=== PATIENT | female | born 1980 | race Caucasian/White ===

== ENCOUNTER → 2016-06-09 | Outpatient (CLI) | payer MEDICAID ==
[~2016-06-09] MED LIST: ATIVAN 1MG T1 MG/TAB PO; BACTRIM DS 8001 TAB PO; DESYREL DIVIDO150 M1 PO; DHA PO; EFFE25TA; FLAGYL; KLONOPIN 0.5MG0.5 MG PO; KLONOPIN 1MG1 MG PO; LIALDA 1.2 GM1.2 GM PO; MULTI VITAMINS1 TAB PO; NORCO 325 MG-51 TAB PO; PRENATAL VITAMI1 TA5 PO; PROBIOTIC FORMU1 CAP PO; PROBIOTICS PO; SLOW FE160 MG PO; SYNTHROID0.075 MG/T PO; TYLENOL/CODEINE1 ML PO; VIIBRYD20 MG PO; VIIBRYD40 MG PO; WELLBUTRIN XL150 MG PO; [UNRECOGNIZED DRUG - OTHER] PO
== END ==
LOC: BHSO 09:42
DX: F41.1 Generalized anxiety disorder (principal)

== ENCOUNTER → 2016-07-18 | Outpatient (CLI) | payer MEDICAID | LOC: COL.LAB 17:07 | DX: R10.9 Unspecified abdominal pain (principal); K92.1 Melena; R19.7 Diarrhea, unspecified ==

== ENCOUNTER → 2016-10-16 | Outpatient (CLI) | payer MEDICAID | LOC: BHSO 09:13 | DX: F33.1 Major depressive disorder, recurrent, moderate (principal) ==

== ENCOUNTER 2016-11-20 11:00 | Outpatient (RCR) | payer MEDICAID ==
[2016-10-09 10:13] LABS: HEMATOCRIT 37.3 % (37.0-47.0); HEMOGLOBIN 12.1 g/dl (12.5-16.0); MEAN CELL VOLUME 92 fl (80.0-100.0); MEAN CORPUSCULAR HEMOGLOBIN 30 pg (27.0-31.0); MEAN CORPUSCULAR HGB CONC 32 g/dl (33.0-37.0); MEAN PLATELET VOLUME 8.5 fl (7.4-10.4); PLATELET COUNT 370 K/mm3 (130-400); RED BLOOD COUNT 4.07 M/mm3 (4.10-5.30); REDCELL DISTRIBUTION WIDTH-CV 14.6 % (11.5-14.5); WHITE BLOOD COUNT 13.1 K/mm3 (4.8-10.8)
[2016-10-09 10:14] LABS: ADD PATHOLOGY DIFF REVIEW NO
[2016-10-09 10:39] LABS: ALBUMIN 3.7 gm/dL (3.5-5.0); BILIRUBIN,TOTAL 0.7 mg/dL (0.0-1.0); CALCIUM 8.8 mg/dL (8.4-10.2); CREATININE, serum 0.95 mg/dL (0.52-1.25); POTASSIUM 3.3 mmol/L (3.4-5.0); TOTAL PROTEIN 6.7 gm/dL (6.4-8.2)
[2016-10-09 11:31] LABS: BAND 1 % (0-10); EOSINOPHIL 3 % (0-4); NEUTROPHILS 55 % (42.0-75.2); TOTAL CELLS COUNTED 100
[2016-10-09 11:36] LABS: HYPOCHROMIA 1+; PLATELET ESTIMATE NORMAL (NORMAL)
[2016-10-23 09:37] LABS: MEAN CELL VOLUME 93 fl (80.0-100.0); MEAN CORPUSCULAR HEMOGLOBIN 31 pg (27.0-31.0); MEAN CORPUSCULAR HGB CONC 33 g/dl (33.0-37.0); MEAN PLATELET VOLUME 8.6 fl (7.4-10.4); PLATELET COUNT 299 K/mm3 (130-400); RED BLOOD COUNT 3.94 M/mm3 (4.10-5.30); REDCELL DISTRIBUTION WIDTH-CV 14.2 % (11.5-14.5); WHITE BLOOD COUNT 13.6 K/mm3 (4.8-10.8)
[2016-10-23 09:42] VITALS: BP 129/78; PULSE 77; TEMP 97.7
[2016-10-23 09:43] LABS: HEMATOCRIT 36.5 % (37.0-47.0)
[2016-10-23 09:53] LABS: ADJUSTED CALCIUM 8.7 mg/dL (8.4-10.2); ALBUMIN 3.5 gm/dL (3.5-5.0); BILIRUBIN,TOTAL 0.7 mg/dL (0.0-1.0); CALCIUM 8.3 mg/dL (8.4-10.2); CREATININE, serum 0.88 mg/dL (0.52-1.25); POTASSIUM 3.7 mmol/L (3.4-5.0); TOTAL PROTEIN 6.3 gm/dL (6.4-8.2)
[~2016-11-20] VITALS: Ht 182.9 cm; Wt 145.5 kg
[~2016-11-20 11:00] MED LIST changes: -ATIVAN 1MG T1 MG/TAB PO; -VIIBRYD20 MG PO
[2016-11-20 11:48] LABS: MEAN CELL VOLUME 91 fl (80.0-100.0); MEAN CORPUSCULAR HGB CONC 34 g/dl (33.0-37.0); MEAN PLATELET VOLUME 8.7 fl (7.4-10.4); PLATELET COUNT 295 K/mm3 (130-400); RED BLOOD COUNT 3.82 M/mm3 (4.10-5.30); REDCELL DISTRIBUTION WIDTH-CV 13.4 % (11.5-14.5); WHITE BLOOD COUNT 7.8 K/mm3 (4.8-10.8)
[2016-11-20 11:49] VITALS: BP 119/71; PULSE 88; TEMP 98.2
[2016-11-20 11:50] LABS: HEMATOCRIT 34.9 % (37.0-47.0); HEMOGLOBIN 11.7 g/dl (12.5-16.0); MEAN CORPUSCULAR HEMOGLOBIN 31 pg (27.0-31.0)
[2016-11-20 12:00] LABS: ALBUMIN 3.7 gm/dL (3.5-5.0); BILIRUBIN,TOTAL 0.5 mg/dL (0.0-1.0); CALCIUM 8.8 mg/dL (8.4-10.2); CREATININE, serum 0.9 mg/dL (0.52-1.25); POTASSIUM 3.8 mmol/L (3.4-5.0); TOTAL PROTEIN 6.7 gm/dL (6.4-8.2)
== END 2016-11-20 14:00 | disposition home or self-care (01) ==
LOC: EUO 11:00
PROVIDERS: Internal Medicine Gastroenterology
DX: K50.90 Crohn's disease, unspecified, without complications (principal); Z79.899 Other long term (current) drug therapy
CPT/HCPCS: J1200; J2930; J3380; J7050

== ENCOUNTER → 2016-11-27 | Outpatient (CLI) | payer MEDICAID ==
[~2016-11-27] MED LIST changes: +ATIVAN 1MG T1 MG/TAB PO; +VIIBRYD20 MG PO
== END ==
LOC: BHSO 08:38
DX: F33.41 Major depressive disorder, recurrent, in partial remission (principal)

== ENCOUNTER → 2017-01-12 | Outpatient (CLI) | payer MEDICAID | LOC: BHSO 09:16 | DX: F33.1 Major depressive disorder, recurrent, moderate (principal) ==

== ENCOUNTER 2017-01-15 13:07 | Outpatient (CLI) | payer MEDICAID ==
[~2017-01-15] VITALS: Ht 182.9 cm; Wt 140.2 kg
[~2017-01-15 13:07] MED LIST changes: -ATIVAN 1MG T1 MG/TAB PO; -VIIBRYD20 MG PO
[2017-01-15 13:34] LABS: HEMOGLOBIN 12.2 g/dl (12.5-16.0); MEAN CELL VOLUME 89 fl (80.0-100.0); MEAN CORPUSCULAR HEMOGLOBIN 30 pg (27.0-31.0); MEAN CORPUSCULAR HGB CONC 33 g/dl (33.0-37.0); MEAN PLATELET VOLUME 8.8 fl (7.4-10.4); PLATELET COUNT 324 K/mm3 (130-400); RED BLOOD COUNT 4.13 M/mm3 (4.10-5.30); REDCELL DISTRIBUTION WIDTH-CV 12.6 % (11.5-14.5); WHITE BLOOD COUNT 9.7 K/mm3 (4.8-10.8)
[2017-01-15 13:36] LABS: HEMATOCRIT 36.6 % (37.0-47.0)
[2017-01-15 13:44] LABS: ALBUMIN 3.8 gm/dL (3.5-5.0); BILIRUBIN,TOTAL 0.6 mg/dL (0.0-1.0); CALCIUM 8.8 mg/dL (8.4-10.2); CREATININE, serum 0.94 mg/dL (0.52-1.25); POTASSIUM 3.6 mmol/L (3.4-5.0); TOTAL PROTEIN 6.9 gm/dL (6.4-8.2)
[2017-01-15] MEDS ORDERED: ATIVAN 1MG T1 MG/TAB PO (14:39)
[2017-01-15] MEDS ORDERED: VIIBRYD20 MG PO (14:39)
[2017-01-15 15:37] VITALS: BP 119/87; PULSE 64; TEMP 97.7
== END 2017-01-15 16:37 | disposition home or self-care (01) ==
LOC: EUO 13:07
PROVIDERS: Physician Assistant
DX: K50.90 Crohn's disease, unspecified, without complications (principal); Z79.899 Other long term (current) drug therapy
CPT/HCPCS: J1200; J2920; J3380; J7050

== ENCOUNTER → 2017-01-29 | Outpatient (CLI) | payer MEDICAID ==
[~2017-01-29] MED LIST changes: +ATIVAN 1MG T1 MG/TAB PO; +VIIBRYD20 MG PO
== END ==
LOC: BHSO 07:58
DX: F33.1 Major depressive disorder, recurrent, moderate (principal)

== ENCOUNTER → 2017-02-13 | Outpatient (CLI) | payer MEDICAID | LOC: BHSO 09:05 | DX: F33.1 Major depressive disorder, recurrent, moderate (principal) ==

== ENCOUNTER → 2017-02-17 | Outpatient (CLI) | payer MEDICAID | LOC: COL.RAD 02-12 13:05 | DX: K58.0 Irritable bowel syndrome with diarrhea (principal); R11.2 Nausea with vomiting, unspecified | CPT/HCPCS: A9541 ==

== ENCOUNTER → 2017-03-04 | Outpatient (CLI) | payer MEDICAID | LOC: BHSO 08:00 | DX: F33.41 Major depressive disorder, recurrent, in partial remission (principal) ==

== ENCOUNTER → 2017-05-05 | Outpatient (CLI) | payer MEDICAID | LOC: BHSO 09:32 | DX: F41.1 Generalized anxiety disorder (principal) ==

== ENCOUNTER → 2017-05-27 | Outpatient (CLI) | payer MEDICAID ==
[~2017-05-27] VITALS: Ht 177.8 cm; Wt 137.9 kg
[~2017-05-27] MED LIST changes: +D3-5050000 IU PO; +DESYREL 100MG100 MG PO; -DESYREL DIVIDO150 M1 PO; +HCTZ 25MG TAB25 MG PO; +PREDNISONE 5MG5 MG PO; +PREDNISONE20 MG PO; +PROTONIX 40MG T40 MG PO; +VALIUM 5MG T5 MG/TAB PO; -VIIBRYD20 MG PO; +ZYRTEC 10MG10 MG PO
[2017-05-27 09:29] VITALS: BP 116/70; PULSE 104
== END ==
LOC: LIGHT 09:13
DX: F33.9 Major depressive disorder, recurrent, unspecified (principal); K21.9 Gastro-esophageal reflux disease without esophagitis; E88.81 Metabolic syndrome and other insulin resistance; I10 Essential (primary) hypertension; Z68.41 Body mass index [BMI] 40.0-44.9, adult; Z71.3 Dietary counseling and surveillance

== ENCOUNTER → 2017-06-11 | Outpatient (CLI) | payer MEDICAID | LOC: LIGHT 13:01 | DX: Z01.818 Encounter for other preprocedural examination (principal) ==

== ENCOUNTER → 2017-06-18 | Outpatient (CLI) | payer MEDICAID ==
[~2017-06-18] VITALS: Ht 177.8 cm; Wt 136.1 kg
[2017-06-18 13:24] VITALS: BP 138/80; PULSE 76
== END ==
LOC: LIGHT 11:24
DX: F33.9 Major depressive disorder, recurrent, unspecified (principal); K21.9 Gastro-esophageal reflux disease without esophagitis; R73.01 Impaired fasting glucose; I10 Essential (primary) hypertension; Z68.41 Body mass index [BMI] 40.0-44.9, adult; Z71.3 Dietary counseling and surveillance
CPT/HCPCS: G0463

== ENCOUNTER → 2017-07-06 | Outpatient (CLI) | payer MEDICAID | LOC: LIGHT 06-23 14:50 | DX: Z01.89 Encounter for other specified special examinations (principal) ==

== ENCOUNTER → 2017-07-07 | Outpatient (CLI) | payer MEDICAID | LOC: BHSO 09:00 | DX: F33.1 Major depressive disorder, recurrent, moderate (principal) | CPT/HCPCS: G0463 ==

== ENCOUNTER → 2017-08-03 | Outpatient (CLI) | payer MEDICAID | LOC: BHSO 09:15 | DX: F33.41 Major depressive disorder, recurrent, in partial remission (principal) | CPT/HCPCS: G0463 ==

== ENCOUNTER → 2017-08-27 | Outpatient (CLI) | payer MEDICAID ==
[~2017-08-27] MED LIST changes: +PRILOSEC 20MG20 MG PO
== END ==
LOC: LIGHT 10:42
DX: Z01.89 Encounter for other specified special examinations (principal)

== ENCOUNTER → 2017-09-11 | Outpatient (CLI) | payer MEDICAID | LOC: BHSO 10:38 | DX: F33.41 Major depressive disorder, recurrent, in partial remission (principal) | CPT/HCPCS: G0463 ==

== ENCOUNTER 2017-09-28 10:54 | Outpatient (CLI) | payer MEDICAID ==
[~2017-09-28] VITALS: Ht 177.8 cm; Wt 134.9 kg
[2017-09-28 11:14] LABS: HEMATOCRIT 39.4 % (37.0-47.0); HEMOGLOBIN 13.1 g/dl (12.5-16.0); MEAN CELL VOLUME 93 fl (80.0-100.0); MEAN CORPUSCULAR HEMOGLOBIN 31 pg (27.0-31.0); MEAN CORPUSCULAR HGB CONC 33 g/dl (33.0-37.0); MEAN PLATELET VOLUME 8.7 fl (7.4-10.4); PLATELET COUNT 302 K/mm3 (130-400); RED BLOOD COUNT 4.22 M/mm3 (4.10-5.30); REDCELL DISTRIBUTION WIDTH-CV 13.4 % (11.5-14.5)
[2017-09-28 11:26] LABS: ALBUMIN 3.8 gm/dL (3.5-5.0); BILIRUBIN,TOTAL 0.3 mg/dL (0.0-1.0); CALCIUM 8.9 mg/dL (8.4-10.2); CREATININE, serum 0.83 mg/dL (0.52-1.25); POTASSIUM 3.5 mmol/L (3.4-5.0); TOTAL PROTEIN 7.2 gm/dL (6.4-8.2)
[2017-09-28 11:36] VITALS: BP 116/69; PULSE 84; TEMP 97.7
== END 2017-09-28 14:52 | disposition home or self-care (01) ==
LOC: EUO 10:54
PROVIDERS: Physician Assistant
DX: K50.90 Crohn's disease, unspecified, without complications (principal); Z79.899 Other long term (current) drug therapy
CPT/HCPCS: J1200; J2930; J7050; Q5103

== ENCOUNTER → 2017-12-21 | Outpatient (CLI) | payer MEDICAID | LOC: BHSO 11:20 | DX: F33.42 Major depressive disorder, recurrent, in full remission (principal) | CPT/HCPCS: G0463 ==

== ENCOUNTER 2018-03-14 18:59 | Emergency (ER) | payer MEDICAID ==
[~2018-03-14] VITALS: Ht 180.3 cm; Wt 146.8 kg
[2018-03-14 19:04] VITALS: TEMP 98.1
[2018-03-14 19:53] LABS: BASO # 0.1 (0.0-0.2); BASO % 0.6 % (0.0-2.0); EOS # 0.3 (0.0-0.7); EOS % 3.1 % (0-4.0); GRAN # 5.6 (1.4-6.5); HEMATOCRIT 39.2 % (37.0-47.0); HEMOGLOBIN 13.3 g/dl (12.5-16.0); LYMPH # 2.9 (1.2-3.4); LYMPH % 29.9 % (20.0-51.0); MEAN CELL VOLUME 89 fl (80.0-100.0); MEAN CORPUSCULAR HEMOGLOBIN 30 pg (27.0-31.0); MEAN CORPUSCULAR HGB CONC 34 g/dl (33.0-37.0); MEAN PLATELET VOLUME 8.7 fl (7.4-10.4); MONO # 0.8 (0.1-0.6); MONO % 8.2 % (1.7-9.3); PLATELET COUNT 334 K/mm3 (130-400); RED BLOOD COUNT 4.42 M/mm3 (4.10-5.30); REDCELL DISTRIBUTION WIDTH-CV 12.7 % (11.5-14.5)
[2018-03-14 20:07] LABS: ALBUMIN 3.9 gm/dL (3.5-5.0); BILIRUBIN,TOTAL 0.3 mg/dL (0.0-1.0); C-REACTIVE PROTEIN 1.4 mg/dL (0.0-0.9); CALCIUM 9.3 mg/dL (8.4-10.2); CREATININE, serum 0.77 mg/dL (0.52-1.25); POTASSIUM 3.7 mmol/L (3.4-5.0); TOTAL PROTEIN 7.2 gm/dL (6.4-8.2)
[2018-03-14] MEDS ORDERED: ZOVIRAX400 MG PO (20:34)
[2018-03-14] MEDS ORDERED: CORTEF 10MG TAB10 MG PO (20:34)
[2018-03-14] MEDS ORDERED: CORTEF 20MG TAB20 MG PO (20:34)
[2018-03-14 22:15] VITALS: BP 126/77; PULSE 97
== END 2018-03-14 22:15 | disposition home or self-care (01) ==
LOC: COL.ER 18:59
PROVIDERS: Emergency Medicine
DX: R53.81 Other malaise (principal); R53.82 Chronic fatigue, unspecified; E27.40 Unspecified adrenocortical insufficiency; K58.9 Irritable bowel syndrome, unspecified; E03.9 Hypothyroidism, unspecified; F41.9 Anxiety disorder, unspecified; F32.9 Major depressive disorder, single episode, unspecified
CPT/HCPCS: J7030

== ENCOUNTER → 2018-03-22 | Outpatient (CLI) | payer MEDICAID ==
[~2018-03-22] MED LIST changes: +CORTEF 10MG TAB10 MG PO; +CORTEF 20MG TAB20 MG PO; +ZOVIRAX400 MG PO
== END ==
LOC: BHSO 09:56
DX: F33.42 Major depressive disorder, recurrent, in full remission (principal)
CPT/HCPCS: G0463

== ENCOUNTER → 2018-04-30 | Outpatient (CLI) | payer MEDICAID | LOC: COL.RAD 12:35 | DX: K76.0 Fatty (change of) liver, not elsewhere classified (principal); R06.09 Other forms of dyspnea; R79.1 Abnormal coagulation profile | CPT/HCPCS: Q9967 ==

== ENCOUNTER → 2018-06-10 | Outpatient (CLI) | payer MEDICAID | LOC: BHSO 10:17 | DX: F33.41 Major depressive disorder, recurrent, in partial remission (principal) | CPT/HCPCS: G0463 ==

== ENCOUNTER → 2018-09-09 | Outpatient (CLI) | payer MEDICAID | LOC: BHSO 09:57 | DX: F33.41 Major depressive disorder, recurrent, in partial remission (principal) | CPT/HCPCS: G0463 ==

== ENCOUNTER 2018-09-19 21:15 | Emergency (ER) | payer SELFPAY ==
[~2018-09-19] VITALS: Ht 180.3 cm; Wt 146.4 kg
[2018-09-19 21:29] VITALS: TEMP 97
[2018-09-19 23:38] LABS: HEMATOCRIT 39.3 % (37.0-47.0); HEMOGLOBIN 12.8 g/dl (12.5-16.0); MEAN CELL VOLUME 87 fl (80.0-100.0); MEAN CORPUSCULAR HEMOGLOBIN 28 pg (27.0-31.0); MEAN CORPUSCULAR HGB CONC 33 g/dl (33.0-37.0); MEAN PLATELET VOLUME 8.4 fl (7.4-10.4); PLATELET COUNT 380 K/mm3 (130-400); REDCELL DISTRIBUTION WIDTH-CV 15.2 % (11.5-14.5)
[2018-09-19] MEDS ORDERED: PREDNISONE 5MG5 MG PO (23:42)
[2018-09-19] MEDS ORDERED: WELLBUTRIN XL150 MG PO (23:43)
[2018-09-19] MEDS ORDERED: RISPERDAL 1M1 MG/TAB PO (23:43)
[2018-09-19] MEDS ORDERED: KAPSPARGO SPRIN25 MG PO (23:44)
[2018-09-19 23:45] LABS: BILIRUBIN,TOTAL 0.2 mg/dL (0.0-1.0); CALCIUM 9.5 mg/dL (8.4-10.2); CREATININE, serum 0.95 (0.52-1.25); POTASSIUM 3.4 mmol/L (3.4-5.0); TOTAL PROTEIN 7.4 gm/dL (6.4-8.2)
[2018-09-20] MEDS ORDERED: ZITHROMAX Z PA250 MG PO (01:02)
[2018-09-20 01:30] VITALS: BP 95/59; PULSE 84
[2018-09-20 01:57] LABS: BAND 9 % (0-10); EOSINOPHIL 2 % (0-4); LYMPHOCYTE 32 % (20.0-51.0); NEUTROPHILS 54 % (42.0-75.2)
== END 2018-09-20 01:32 | disposition home or self-care (01) ==
LOC: COL.ER 21:15
PROVIDERS: Physician Assistant
DX: J20.9 Acute bronchitis, unspecified (principal)

== ENCOUNTER 2018-09-29 13:15 | Day surgery (SDC) | payer BC ==
[~2018-09-29] VITALS: Ht 180.3 cm; Wt 145.5 kg
[~2018-09-29 13:15] MED LIST changes: +KAPSPARGO SPRIN25 MG PO; +RISPERDAL 1M1 MG/TAB PO; +ZITHROMAX Z PA250 MG PO
[2018-09-29 13:40] VITALS: BP 132/91; PULSE 118; TEMP 96.3
[2018-09-29] MEDS ORDERED: LIALDA 1.2 GM1.2 GM PO (13:51)
[2018-09-29] MEDS ORDERED: DULERA1 ARO IH (13:52)
[2018-09-29] MEDS ORDERED: WOMEN'S DAILY1 TAB PO (13:53)
[2018-09-29] MEDS ORDERED: AMOXICILLIN 8751 TAB PO (13:53)
[2018-09-29] MEDS ORDERED: SINGULAIR 110 MG/TAB PO (13:53)
[2018-09-29 15:00] VITALS: BP 128/89; PULSE 109; TEMP 97.4
--- NOTE | 2018-09-29 15:00 | NUR ---
PT RETURNS FROM PROCEDURE TO BAY 3 BY CART. AMBULATES FROM CART TO CHAIR WITH STANDBY ASSIST. MONITORS APPLIED. VSS AND AT BASELINE. CALL LIGHT IN REACH. PT DENIES PAIN OR NAUSEA, REQUEST JUICE, WATER, AND MUFFIN. DR. MARCANO IN ROOM.
[2018-09-29 15:15] VITALS: BP 129/91; PULSE 113
--- NOTE | 2018-09-29 15:15 | NUR ---
PT TOLERATE FOOD AND DRINK. CONTINUES TO DENY PAIN OR NAUSEA. VSS AND AT BASELINE ON ROOM AIR. CALL LIGHT IN REACH.
[2018-09-29 15:31] VITALS: BP 143/89; PULSE 104
--- NOTE | 2018-09-29 15:31 | NUR ---
PT REMAINS ALERT. DENIES PAIN OR NAUSEA. IV DC'D WITH CATH TIP INTACT. DC INSTRUCTIONS GIVEN. PT VOICES UNDERSTANDING.
== END 2018-09-29 15:35 | disposition home or self-care (01) ==
LOC: SDCO 13:15
DX: K21.9 Gastro-esophageal reflux disease without esophagitis (principal); K29.30 Chronic superficial gastritis without bleeding; K51.011 Ulcerative (chronic) pancolitis with rectal bleeding; K92.1 Melena; Z90.49 Acquired absence of other specified parts of digestive tract; E66.01 Morbid (severe) obesity due to excess calories; F32.9 Major depressive disorder, single episode, unspecified; F41.9 Anxiety disorder, unspecified; Z79.51 Long term (current) use of inhaled steroids; M19.90 Unspecified osteoarthritis, unspecified site; K21.0 Gastro-esophageal reflux disease with esophagitis; R53.82 Chronic fatigue, unspecified; R19.7 Diarrhea, unspecified
CPT/HCPCS: J2250; J2704; J3010

== ENCOUNTER → 2018-10-08 | Outpatient (CLI) | payer BC ==
[~2018-10-08] MED LIST changes: +AMOXICILLIN 8751 TAB PO; +DULERA1 ARO IH; +SINGULAIR 110 MG/TAB PO; +WOMEN'S DAILY1 TAB PO
== END ==
LOC: BHSO 12:54
DX: F33.1 Major depressive disorder, recurrent, moderate (principal)

== ENCOUNTER → 2018-10-25 | Outpatient (CLI) | payer BC | LOC: BHSO 09:58 | DX: F40.10 Social phobia, unspecified (principal) ==

== ENCOUNTER → 2018-11-08 | Outpatient (CLI) | payer BC | LOC: BHSO 09:58 | DX: F42.9 Obsessive-compulsive disorder, unspecified (principal) ==

== ENCOUNTER → 2018-11-09 | Outpatient (CLI) | payer BC | LOC: BHSO 09:33 | DX: F31.81 Bipolar II disorder (principal) | CPT/HCPCS: G0463 ==

== ENCOUNTER → 2018-11-30 | Outpatient (CLI) | payer BC ==
[~2018-11-30] MED LIST changes: +FLAGYL 250250 MG/TAB PO
== END ==
LOC: BHSO 09:58
DX: F42.9 Obsessive-compulsive disorder, unspecified (principal)

== ENCOUNTER → 2018-12-16 | Outpatient (CLI) | payer BC ==
[~2018-12-16] MED LIST changes: +ADDERALL XR 10M10 MG PO; +CORTEF5 MG PO
== END ==
LOC: BHSO 10:02
DX: F42.9 Obsessive-compulsive disorder, unspecified (principal)

== ENCOUNTER 2018-12-20 14:00 | Outpatient (RCR) | payer BC ==
[2018-11-08 14:35] LABS: HEMATOCRIT 38.8 % (37.0-47.0); HEMOGLOBIN 12.9 g/dl (12.5-16.0); MEAN CELL VOLUME 89 fl (80.0-100.0); MEAN CORPUSCULAR HEMOGLOBIN 30 pg (27.0-31.0); MEAN CORPUSCULAR HGB CONC 33 g/dl (33.0-37.0); MEAN PLATELET VOLUME 8.5 fl (7.4-10.4); PLATELET COUNT 331 K/mm3 (130-400); RED BLOOD COUNT 4.37 M/mm3 (4.10-5.30); REDCELL DISTRIBUTION WIDTH-CV 14.8 % (11.5-14.5)
[2018-11-08 14:47] LABS: ALBUMIN 4.2 gm/dL (3.5-5.0); BILIRUBIN,TOTAL 0.4 mg/dL (0.0-1.0); CALCIUM 9.6 mg/dL (8.4-10.2); CREATININE, serum 0.94 (0.52-1.25); TOTAL PROTEIN 7.4 gm/dL (6.4-8.2)
[2018-11-08 15:42] VITALS: BP 124/69; PULSE 86; TEMP 98.2
[2018-11-08 16:15] VITALS: BP 116/68; PULSE 82; TEMP 98.4
[2018-11-08 16:45] VITALS: BP 106/63; PULSE 89; TEMP 98
[2018-11-08 17:15] VITALS: BP 109/72; PULSE 86
--- NOTE | 2018-11-08 17:20 | NUR ---
Report to Donya Etienne RN who assumed care at this time.
[2018-11-08 17:41] VITALS: BP 107/67; PULSE 83; TEMP 97
[2018-11-22 14:09] LABS: HEMATOCRIT 41.4 % (37.0-47.0); HEMOGLOBIN 13.8 g/dl (12.5-16.0); MEAN CELL VOLUME 90 fl (80.0-100.0); MEAN CORPUSCULAR HEMOGLOBIN 30 pg (27.0-31.0); MEAN CORPUSCULAR HGB CONC 33 g/dl (33.0-37.0); MEAN PLATELET VOLUME 8.6 fl (7.4-10.4); PLATELET COUNT 326 K/mm3 (130-400); REDCELL DISTRIBUTION WIDTH-CV 15.4 % (11.5-14.5)
[2018-11-22 14:17] LABS: ALBUMIN 4.4 gm/dL (3.5-5.0); BILIRUBIN,TOTAL 0.3 mg/dL (0.0-1.0); CALCIUM 9.5 mg/dL (8.4-10.2); CREATININE, serum 0.82 (0.52-1.25); POTASSIUM 4.7 mmol/L (3.4-5.0); TOTAL PROTEIN 8.2 gm/dL (6.4-8.2)
[2018-11-22 15:40] VITALS: BP 119/74; PULSE 101; TEMP 98.6
[2018-11-22 16:10] VITALS: BP 131/77; PULSE 101; TEMP 98.1
--- NOTE | 2018-11-22 16:15 | NUR ---
Report to Arlette Russell Rn who assumed care at this time.
[2018-11-22 16:40] VITALS: BP 126/72; PULSE 110; TEMP 98.7
[2018-11-22 17:10] VITALS: BP 110/76; PULSE 96; TEMP 98.1
[2018-11-22 17:40] VITALS: BP 108/80; PULSE 99; TEMP 98
[~2018-12-20] VITALS: Ht 180.3 cm; Wt 156.3 kg
[~2018-12-20 14:00] MED LIST changes: -ADDERALL XR 10M10 MG PO; -CORTEF5 MG PO
[2018-12-20 14:13] LABS: HEMATOCRIT 39.4 % (37.0-47.0); HEMOGLOBIN 13.3 g/dl (12.5-16.0); MEAN CELL VOLUME 89 fl (80.0-100.0); MEAN CORPUSCULAR HEMOGLOBIN 30 pg (27.0-31.0); MEAN CORPUSCULAR HGB CONC 34 g/dl (33.0-37.0); MEAN PLATELET VOLUME 8.7 fl (7.4-10.4); PLATELET COUNT 288 K/mm3 (130-400); RED BLOOD COUNT 4.43 M/mm3 (4.10-5.30); REDCELL DISTRIBUTION WIDTH-CV 13.9 % (11.5-14.5)
[2018-12-20] MEDS ORDERED: ADDERALL XR 10M10 MG PO (14:13)
[2018-12-20] MEDS ORDERED: CORTEF 10MG TAB10 MG PO (14:14)
[2018-12-20] MEDS ORDERED: CORTEF5 MG PO (14:15)
[2018-12-20 14:23] LABS: ALBUMIN 4.3 gm/dL (3.5-5.0); BILIRUBIN,TOTAL 0.5 mg/dL (0.0-1.0); CALCIUM 9.5 mg/dL (8.4-10.2); CREATININE, serum 0.83 (0.52-1.25); POTASSIUM 4.1 mmol/L (3.4-5.0); TOTAL PROTEIN 7.6 gm/dL (6.4-8.2)
[2018-12-20 15:00] VITALS: BP 115/78; PULSE 92; TEMP 97.7
[2018-12-20 15:15] VITALS: BP 112/70; PULSE 97; TEMP 97.7
[2018-12-20 15:45] VITALS: BP 106/65; PULSE 94; TEMP 97.7
[2018-12-20 16:15] VITALS: BP 119/75; PULSE 92; TEMP 97.7
[2018-12-20 16:45] VITALS: BP 113/78; PULSE 94; TEMP 97.7
== END 2018-12-20 17:08 | disposition home or self-care (01) ==
LOC: EUO 14:00
PROVIDERS: Internal Medicine Gastroenterology
DX: K50.90 Crohn's disease, unspecified, without complications (principal); Z79.899 Other long term (current) drug therapy
CPT/HCPCS: J1200; J2930; J7050; Q5103

== ENCOUNTER → 2018-12-29 | Outpatient (CLI) | payer BC ==
[~2018-12-29] MED LIST changes: +ADDERALL XR 10M10 MG PO; +CORTEF5 MG PO
== END ==
LOC: BHSO 08:54
DX: F42.9 Obsessive-compulsive disorder, unspecified (principal)

== ENCOUNTER → 2019-01-12 | Outpatient (CLI) | payer BC | LOC: BHSO 09:52 | DX: F41.1 Generalized anxiety disorder (principal) ==

== ENCOUNTER → 2019-01-26 | Outpatient (CLI) | payer BC | LOC: BHSO 10:59 | DX: F42.9 Obsessive-compulsive disorder, unspecified (principal) ==

== ENCOUNTER → 2019-02-08 | Outpatient (CLI) | payer BC | LOC: BHSO 09:58 | DX: F31.81 Bipolar II disorder (principal) | CPT/HCPCS: G0463 ==

== ENCOUNTER → 2019-02-09 | Outpatient (CLI) | payer BC | LOC: BHSO 10:33 | DX: F42.9 Obsessive-compulsive disorder, unspecified (principal) ==

== ENCOUNTER → 2019-02-23 | Outpatient (CLI) | payer BC | LOC: BHSO 10:07 | DX: F42.9 Obsessive-compulsive disorder, unspecified (principal) ==

== ENCOUNTER → 2019-03-10 | Outpatient (CLI) | payer BC | LOC: BHSO 09:54 | DX: F42.9 Obsessive-compulsive disorder, unspecified (principal) ==

== ENCOUNTER 2019-03-23 13:50 | Outpatient (CLI) | payer BC ==
[~2019-03-23] VITALS: Ht 180.3 cm; Wt 153.0 kg
[2019-03-23] VITALS (7 sets, daily range): BP systolic 103–116; BP diastolic 72–79; PULSE 70–77; TEMP 97.6–98
[2019-03-23 14:36] LABS: HEMATOCRIT 40.8 % (37.0-47.0); HEMOGLOBIN 13.7 g/dl (12.5-16.0); MEAN CELL VOLUME 91 fl (80.0-100.0); MEAN CORPUSCULAR HEMOGLOBIN 30 pg (27.0-31.0); MEAN CORPUSCULAR HGB CONC 34 g/dl (33.0-37.0); MEAN PLATELET VOLUME 8.8 fl (7.4-10.4); PLATELET COUNT 267 K/mm3 (130-400); RED BLOOD COUNT 4.51 M/mm3 (4.10-5.30); REDCELL DISTRIBUTION WIDTH-CV 13.4 % (11.5-14.5)
[2019-03-23 14:47] LABS: ALBUMIN 4.5 gm/dL (3.5-5.0); BILIRUBIN,TOTAL 0.4 mg/dL (0.0-1.0); CALCIUM 9.5 mg/dL (8.4-10.2); CREATININE, serum 0.76 (0.52-1.25); POTASSIUM 3.7 mmol/L (3.4-5.0); TOTAL PROTEIN 7.8 gm/dL (6.4-8.2)
== END 2019-03-23 18:14 | disposition home or self-care (01) ==
LOC: EUO 13:50
PROVIDERS: Internal Medicine Gastroenterology
DX: K51.90 Ulcerative colitis, unspecified, without complications (principal); Z79.899 Other long term (current) drug therapy
CPT/HCPCS: J1200; J2930; J7040; Q5103

== ENCOUNTER → 2019-03-24 | Outpatient (CLI) | payer BC | LOC: BHSO 10:59 | DX: F42.9 Obsessive-compulsive disorder, unspecified (principal) ==

== ENCOUNTER → 2019-04-14 | Outpatient (CLI) | payer BC | LOC: BHSO 08:55 | DX: F42.9 Obsessive-compulsive disorder, unspecified (principal) ==

== ENCOUNTER → 2019-05-05 | Outpatient (CLI) | payer BC | LOC: BHSO 09:53 | DX: F42.8 Other obsessive-compulsive disorder (principal) ==

== ENCOUNTER 2019-05-16 13:01 | Outpatient (CLI) | payer BC ==
[~2019-05-16] VITALS: Ht 180.3 cm; Wt 153.3 kg
[2019-05-16] VITALS (8 sets, daily range): BP systolic 92–124; BP diastolic 45–81; PULSE 61–75; TEMP 97.8–97.9
[2019-05-16 13:34] LABS: HEMATOCRIT 42.2 % (37.0-47.0); HEMOGLOBIN 14.2 g/dl (12.5-16.0); MEAN CELL VOLUME 91 fl (80.0-100.0); MEAN CORPUSCULAR HEMOGLOBIN 31 pg (27.0-31.0); MEAN CORPUSCULAR HGB CONC 34 g/dl (33.0-37.0); MEAN PLATELET VOLUME 9.2 fl (7.4-10.4); PLATELET COUNT 354 K/mm3 (130-400); RED BLOOD COUNT 4.62 M/mm3 (4.10-5.30)
[2019-05-16 13:39] LABS: ALBUMIN 4.3 gm/dL (3.5-5.0); BILIRUBIN,TOTAL 0.5 mg/dL (0.0-1.0); CALCIUM 9.3 mg/dL (8.4-10.2); CREATININE, serum 0.81 (0.52-1.25); POTASSIUM 3.8 mmol/L (3.4-5.0); TOTAL PROTEIN 7.6 gm/dL (6.4-8.2)
== END 2019-05-16 18:00 | disposition home or self-care (01) ==
LOC: EUO 13:01
PROVIDERS: Internal Medicine Gastroenterology
DX: K51.90 Ulcerative colitis, unspecified, without complications (principal); Z79.899 Other long term (current) drug therapy
CPT/HCPCS: J1200; J2930; J7050; Q5103

== ENCOUNTER → 2019-05-30 | Outpatient (CLI) | payer BC | LOC: BHSO 12:54 | DX: F42.8 Other obsessive-compulsive disorder (principal) ==

== ENCOUNTER → 2019-06-17 | Outpatient (CLI) | payer BC | LOC: BHSO 08:59 | DX: F42.8 Other obsessive-compulsive disorder (principal) ==

== ENCOUNTER → 2019-06-24 | Outpatient (CLI) | payer BC | LOC: COL.RAD 08:47 | DX: R74.8 Abnormal levels of other serum enzymes (principal); K76.0 Fatty (change of) liver, not elsewhere classified ==

== ENCOUNTER → 2019-06-30 | Outpatient (CLI) | payer BC | LOC: BHSO 09:02 | DX: F42.8 Other obsessive-compulsive disorder (principal) ==

== ENCOUNTER 2019-07-11 12:53 | Outpatient (CLI) | payer BC ==
[~2019-07-11] VITALS: Ht 180.3 cm; Wt 150.0 kg
[2019-07-11 13:09] LABS: HEMATOCRIT 41.2 % (37.0-47.0); HEMOGLOBIN 14.1 g/dl (12.5-16.0); MEAN CELL VOLUME 91 fl (80.0-100.0); MEAN CORPUSCULAR HEMOGLOBIN 31 pg (27.0-31.0); MEAN CORPUSCULAR HGB CONC 34 g/dl (33.0-37.0); PLATELET COUNT 299 K/mm3 (130-400); RED BLOOD COUNT 4.54 M/mm3 (4.10-5.30); REDCELL DISTRIBUTION WIDTH-CV 13.7 % (11.5-14.5)
[2019-07-11 13:23] LABS: ALBUMIN 4.4 gm/dL (3.5-5.0); BILIRUBIN,TOTAL 0.8 mg/dL (0.0-1.0); CALCIUM 9.3 mg/dL (8.4-10.2); CREATININE, serum 0.81 (0.52-1.25); POTASSIUM 3.9 mmol/L (3.4-5.0); TOTAL PROTEIN 7.7 gm/dL (6.4-8.2)
[2019-07-11 14:29] VITALS: BP 107/56; PULSE 82; TEMP 98.2
[2019-07-11 14:59] VITALS: BP 109/62; PULSE 78; TEMP 98.2
[2019-07-11 15:27] VITALS: BP 113/71; PULSE 85; TEMP 98.2
[2019-07-11 15:58] VITALS: BP 121/58; PULSE 85; TEMP 98.2
[2019-07-11 16:28] VITALS: BP 120/56; PULSE 85; TEMP 98.2
== END 2019-07-11 16:30 | disposition home or self-care (01) ==
LOC: EUO 12:53
PROVIDERS: Internal Medicine Gastroenterology
DX: K51.90 Ulcerative colitis, unspecified, without complications (principal); Z79.899 Other long term (current) drug therapy
CPT/HCPCS: J1200; J1745; J2930; J7040; Q5103

== ENCOUNTER → 2019-07-12 | Outpatient (CLI) | payer BC | LOC: BHSO 09:55 | DX: F41.1 Generalized anxiety disorder (principal) | CPT/HCPCS: G0463 ==

== ENCOUNTER → 2019-07-22 | Outpatient (CLI) | payer BC | LOC: BHSO 08:58 | DX: F41.1 Generalized anxiety disorder (principal) ==

== ENCOUNTER → 2019-08-12 | Outpatient (CLI) | payer BC | LOC: BHSO 13:56 | DX: F42.8 Other obsessive-compulsive disorder (principal) ==

== ENCOUNTER 2019-09-12 13:44 | Outpatient (CLI) | payer BC ==
[~2019-09-12] VITALS: Ht 180.3 cm; Wt 153.6 kg
[2019-09-12] VITALS (7 sets, daily range): BP systolic 105–139; BP diastolic 70–88; PULSE 91–101; TEMP 98–98.4
[2019-09-12 14:11] LABS: HEMATOCRIT 38.7 % (37.0-47.0); HEMOGLOBIN 13.2 g/dl (12.5-16.0); MEAN CELL VOLUME 91 fl (80.0-100.0); MEAN CORPUSCULAR HEMOGLOBIN 31 pg (27.0-31.0); MEAN CORPUSCULAR HGB CONC 34 g/dl (33.0-37.0); MEAN PLATELET VOLUME 8.7 fl (7.4-10.4); PLATELET COUNT 284 K/mm3 (130-400); RED BLOOD COUNT 4.25 M/mm3 (4.10-5.30); REDCELL DISTRIBUTION WIDTH-CV 13.2 % (11.5-14.5)
[2019-09-12] MEDS ORDERED: PRISTIQ25 MG PO (14:13)
[2019-09-12 14:21] LABS: ALBUMIN 4.3 gm/dL (3.5-5.0); BILIRUBIN,TOTAL 0.7 mg/dL (0.0-1.0); CALCIUM 9.5 mg/dL (8.4-10.2); CREATININE, serum 1.05 (0.52-1.25); POTASSIUM 3.6 mmol/L (3.4-5.0); TOTAL PROTEIN 7.8 gm/dL (6.4-8.2)
--- NOTE | 2019-09-12 16:59 | NUR ---
REPORT GIVEN TO ISAURA SHELBY AND ISAURA STEELE.
== END 2019-09-12 18:07 | disposition home or self-care (01) ==
LOC: EUO 13:44
PROVIDERS: Internal Medicine Gastroenterology
DX: K51.90 Ulcerative colitis, unspecified, without complications (principal); Z79.899 Other long term (current) drug therapy
CPT/HCPCS: J1200; J1745; J2930; J7040; Q5103

== ENCOUNTER 2019-11-07 13:22 | Outpatient (CLI) | payer BC ==
[~2019-11-07] VITALS: Ht 180.3 cm; Wt 155.6 kg
[~2019-11-07 13:22] MED LIST changes: +PRISTIQ25 MG PO
[2019-11-07 13:50] LABS: HEMATOCRIT 41.6 % (37.0-47.0); MEAN CELL VOLUME 91 fl (80.0-100.0); MEAN CORPUSCULAR HEMOGLOBIN 31 pg (27.0-31.0); MEAN CORPUSCULAR HGB CONC 34 g/dl (33.0-37.0); MEAN PLATELET VOLUME 8.7 fl (7.4-10.4); PLATELET COUNT 333 K/mm3 (130-400); RED BLOOD COUNT 4.57 M/mm3 (4.10-5.30); REDCELL DISTRIBUTION WIDTH-CV 13.2 % (11.5-14.5)
[2019-11-07 14:02] LABS: ALBUMIN 4.5 gm/dL (3.5-5.0); BILIRUBIN,TOTAL 0.7 mg/dL (0.0-1.0); CALCIUM 9.6 mg/dL (8.4-10.2); CREATININE, serum 0.83 (0.52-1.25); POTASSIUM 4.1 mmol/L (3.4-5.0); TOTAL PROTEIN 8.1 gm/dL (6.4-8.2)
[2019-11-07 15:48] VITALS: BP 99/65; PULSE 77; TEMP 98
[2019-11-07 16:18] VITALS: BP 115/70; PULSE 76; TEMP 98
[2019-11-07 16:48] VITALS: BP 115/72; PULSE 76; TEMP 98
[2019-11-07 17:40] VITALS: BP 115/74; PULSE 76; TEMP 98
== END 2019-11-07 17:41 | disposition home or self-care (01) ==
LOC: EUO 13:22
PROVIDERS: Internal Medicine Gastroenterology
DX: K51.90 Ulcerative colitis, unspecified, without complications (principal); Z79.899 Other long term (current) drug therapy
CPT/HCPCS: J1200; J2920; J7050; Q5103

== ENCOUNTER → 2019-11-17 | Outpatient (CLI) | payer BC | LOC: BHSO 13:55 | DX: F42.8 Other obsessive-compulsive disorder (principal) ==

== ENCOUNTER → 2019-11-28 | Outpatient (CLI) | payer BC | LOC: ZCOL.LAB 21:36 | DX: R05 Cough (principal); R06.02 Shortness of breath; Z20.828 Contact with and (suspected) exposure to other viral communicable diseases ==

== ENCOUNTER → 2019-12-06 | Outpatient (CLI) | payer BC | LOC: BHSO 13:01 | DX: F42.8 Other obsessive-compulsive disorder (principal) ==

== ENCOUNTER → 2019-12-19 | Outpatient (CLI) | payer BC | LOC: BHSO 10:36 | DX: F31.81 Bipolar II disorder (principal) | CPT/HCPCS: G0463 ==

== ENCOUNTER → 2019-12-20 | Outpatient (CLI) | payer BC | LOC: BHSO 13:02 | DX: F42.8 Other obsessive-compulsive disorder (principal) ==

== ENCOUNTER 2020-01-06 08:13 | Outpatient (CLI) | payer BC ==
[2020-01-06] VITALS (7 sets, daily range): BP systolic 107–133; BP diastolic 62–75; PULSE 74–92; TEMP 97.8
[~2020-01-06] VITALS: Ht 180.3 cm; Wt 150.4 kg
[2020-01-06 08:51] LABS: HEMATOCRIT 39.2 % (37.0-47.0); HEMOGLOBIN 13.2 g/dl (12.5-16.0); MEAN CELL VOLUME 91 fl (80.0-100.0); MEAN CORPUSCULAR HEMOGLOBIN 31 pg (27.0-31.0); MEAN CORPUSCULAR HGB CONC 34 g/dl (33.0-37.0); MEAN PLATELET VOLUME 8.7 fl (7.4-10.4); PLATELET COUNT 355 K/mm3 (130-400); RED BLOOD COUNT 4.32 M/mm3 (4.10-5.30); REDCELL DISTRIBUTION WIDTH-CV 13.4 % (11.5-14.5)
[2020-01-06 09:02] LABS: ALBUMIN 4.3 gm/dL (3.5-5.0); BILIRUBIN,TOTAL 0.5 mg/dL (0.0-1.0); CALCIUM 8.9 mg/dL (8.4-10.2); CREATININE, serum 0.82 (0.52-1.25); POTASSIUM 3.6 mmol/L (3.4-5.0); TOTAL PROTEIN 7.7 gm/dL (6.4-8.2)
== END 2020-01-06 14:21 | disposition home or self-care (01) ==
LOC: EUO 08:13
PROVIDERS: Internal Medicine Gastroenterology
DX: K51.90 Ulcerative colitis, unspecified, without complications (principal); Z79.899 Other long term (current) drug therapy
CPT/HCPCS: J1200; J2930; J7040; Q5103

== ENCOUNTER → 2020-01-20 | Outpatient (CLI) | payer BC | LOC: BHSO 09:00 | DX: F42.8 Other obsessive-compulsive disorder (principal) ==

== ENCOUNTER → 2020-01-27 | Outpatient (CLI) | payer BC | LOC: COL.RAD | DX: R19.07 Generalized intra-abdominal and pelvic swelling, mass and lump (principal); M54.41 Lumbago with sciatica, right side; M54.42 Lumbago with sciatica, left side ==

== ENCOUNTER → 2020-02-01 | Outpatient (CLI) | payer BC | LOC: BHSO 10:09 | DX: F42.8 Other obsessive-compulsive disorder (principal) ==

== ENCOUNTER 2020-02-08 11:09 | Outpatient (CLI) | payer BC ==
[~2020-02-08] VITALS: Ht 180.3 cm; Wt 151.1 kg
[~2020-02-08 11:09] MED LIST changes: -VANCOCIN H125 MG/CAP PO
[2020-02-08 11:50] LABS: HEMATOCRIT 37.4 % (37.0-47.0); HEMOGLOBIN 12.7 g/dl (12.5-16.0); MEAN CELL VOLUME 91 fl (80.0-100.0); MEAN CORPUSCULAR HEMOGLOBIN 31 pg (27.0-31.0); MEAN CORPUSCULAR HGB CONC 34 g/dl (33.0-37.0); MEAN PLATELET VOLUME 8.8 fl (7.4-10.4); PLATELET COUNT 362 K/mm3 (130-400); RED BLOOD COUNT 4.12 M/mm3 (4.10-5.30); REDCELL DISTRIBUTION WIDTH-CV 13.4 % (11.5-14.5)
[2020-02-08 11:56] LABS: ALBUMIN 4.1 gm/dL (3.5-5.0); BILIRUBIN,TOTAL 0.6 mg/dL (0.0-1.0); CALCIUM 8.9 mg/dL (8.4-10.2); CREATININE, serum 0.79 (0.52-1.25); POTASSIUM 3.4 mmol/L (3.4-5.0); TOTAL PROTEIN 7.3 gm/dL (6.4-8.2)
[2020-02-08 12:54] VITALS: BP 131/83; PULSE 73; TEMP 97.9
[2020-02-08] MEDS ORDERED: VANCOCIN H125 MG/CAP PO (13:06)
[2020-02-08 13:29] VITALS: BP 134/94; PULSE 74; TEMP 97.9
[2020-02-08 13:58] VITALS: BP 130/86; PULSE 94; TEMP 97.9
[2020-02-08 14:29] VITALS: BP 135/88; PULSE 85; TEMP 97.9
[2020-02-08 14:58] VITALS: BP 121/82; PULSE 84; TEMP 97.9
[2020-02-08 15:29] VITALS: BP 137/88; PULSE 91; TEMP 97.9
== END 2020-02-08 15:29 | disposition home or self-care (01) ==
LOC: EUO 11:09
PROVIDERS: Internal Medicine Gastroenterology
DX: K51.90 Ulcerative colitis, unspecified, without complications (principal); Z79.899 Other long term (current) drug therapy
CPT/HCPCS: J1200; J2930; J7040; Q5103

== ENCOUNTER → 2020-02-08 | Outpatient (CLI) | payer BC ==
[~2020-02-08] MED LIST changes: +VANCOCIN H125 MG/CAP PO
== END ==
LOC: MC.RAD 09:24
DX: Z12.31 Encounter for screening mammogram for malignant neoplasm of breast (principal)

== ENCOUNTER 2020-02-13 07:50 | Emergency (ER) | payer BC ==
[~2020-02-13] VITALS: Ht 180.3 cm; Wt 154.5 kg
[~2020-02-13 07:50] MED LIST changes: +VANCOCIN H125 MG/CAP PO
[2020-02-13 08:04] VITALS: TEMP 97.6
[2020-02-13 09:05] LABS: BASO # 0.1 (0.0-0.2); BASO % 0.7 % (0.0-2.0); EOS # 0.3 (0.0-0.7); EOS % 2.4 % (0-4.0); GRAN # 5.7 (1.4-6.5); GRAN % 49.1 % (42.2-75.2); HEMOGLOBIN 12.4 g/dl (12.5-16.0); LYMPH # 4.7 (1.2-3.4); LYMPH % 40.5 % (20.0-51.0); MEAN CELL VOLUME 92 fl (80.0-100.0); MEAN CORPUSCULAR HEMOGLOBIN 31 pg (27.0-31.0); MEAN CORPUSCULAR HGB CONC 34 g/dl (33.0-37.0); MONO # 0.8 (0.1-0.6); PLATELET COUNT 334 K/mm3 (130-400); RED BLOOD COUNT 3.97 M/mm3 (4.10-5.30); REDCELL DISTRIBUTION WIDTH-CV 13.8 % (11.5-14.5)
[2020-02-13 09:13] LABS: ALBUMIN 4.1 gm/dL (3.5-5.0); BILIRUBIN,TOTAL 0.5 mg/dL (0.0-1.0); CALCIUM 9.5 mg/dL (8.4-10.2); CREATININE, serum 0.76 (0.52-1.25); POTASSIUM 3.6 mmol/L (3.4-5.0); TOTAL PROTEIN 7.2 gm/dL (6.4-8.2)
[2020-02-13 09:26] LABS: HEMATOCRIT 36.5 % (37.0-47.0)
[2020-02-13] MEDS ORDERED: PREDNISONE20 MG PO (11:45)
[2020-02-13 12:33] VITALS: PULSE 85
== END 2020-02-13 12:02 | disposition home or self-care (01) ==
LOC: COL.ER 07:50
PROVIDERS: Nurse Practitioner Primary Care
DX: K51.911 Ulcerative colitis, unspecified with rectal bleeding (principal); I10 Essential (primary) hypertension; F41.9 Anxiety disorder, unspecified; F32.9 Major depressive disorder, single episode, unspecified; Z90.722 Acquired absence of ovaries, bilateral; Z87.891 Personal history of nicotine dependence
CPT/HCPCS: J2405; J2920; J7030

== ENCOUNTER → 2020-02-15 | Outpatient (CLI) | payer BC | LOC: BHSO 09:59 | DX: F42.8 Other obsessive-compulsive disorder (principal) ==

== ENCOUNTER → 2020-02-23 | Outpatient (CLI) | payer BC | LOC: BHSO 11:19 | DX: F41.1 Generalized anxiety disorder (principal) | CPT/HCPCS: G0463 ==

== ENCOUNTER → 2020-02-29 | Outpatient (CLI) | payer BC | LOC: BHSO 10:08 | DX: F42.8 Other obsessive-compulsive disorder (principal) ==

== ENCOUNTER 2020-03-07 10:57 | Outpatient (CLI) | payer BC ==
[2020-03-07] VITALS (8 sets, daily range): BP systolic 115–132; BP diastolic 77–86; PULSE 78–94; TEMP 98
[~2020-03-07] VITALS: Ht 180.3 cm; Wt 153.0 kg
[2020-03-07 11:32] LABS: HEMATOCRIT 38.5 % (37.0-47.0); HEMOGLOBIN 12.9 g/dl (12.5-16.0); MEAN CELL VOLUME 93 fl (80.0-100.0); MEAN CORPUSCULAR HEMOGLOBIN 31 pg (27.0-31.0); MEAN CORPUSCULAR HGB CONC 34 g/dl (33.0-37.0); MEAN PLATELET VOLUME 8.4 fl (7.4-10.4); PLATELET COUNT 351 K/mm3 (130-400); RED BLOOD COUNT 4.14 M/mm3 (4.10-5.30); REDCELL DISTRIBUTION WIDTH-CV 14.2 % (11.5-14.5)
[2020-03-07 11:56] LABS: ALBUMIN 4.2 gm/dL (3.5-5.0); BILIRUBIN,TOTAL 0.4 mg/dL (0.0-1.0); CALCIUM 8.8 mg/dL (8.4-10.2); CREATININE, serum 0.85 (0.52-1.25); POTASSIUM 3.6 mmol/L (3.4-5.0); TOTAL PROTEIN 7.4 gm/dL (6.4-8.2)
== END 2020-03-07 15:45 | disposition home or self-care (01) ==
LOC: EUO 10:57
PROVIDERS: Internal Medicine Gastroenterology
DX: K51.90 Ulcerative colitis, unspecified, without complications (principal); Z79.899 Other long term (current) drug therapy
CPT/HCPCS: J1200; J2930; J7040; Q5103

== ENCOUNTER → 2020-03-15 | Outpatient (CLI) | payer BC | LOC: BHSO 10:02 | DX: F42.8 Other obsessive-compulsive disorder (principal) ==

== ENCOUNTER → 2020-03-23 | Outpatient (CLI) | payer BC | LOC: ZCOL.LAB 09:24 | DX: Z20.828 Contact with and (suspected) exposure to other viral communicable diseases (principal) ==

== ENCOUNTER → 2020-05-07 | Outpatient (CLI) | payer BC ==
[~2020-05-07] VITALS: Ht 180.3 cm; Wt 150.0 kg
[2020-05-07 16:39] LABS: HEMOGLOBIN 12.4 g/dl (12.5-16.0); MEAN CELL VOLUME 90 fl (80.0-100.0); MEAN CORPUSCULAR HEMOGLOBIN 30 pg (27.0-31.0); MEAN CORPUSCULAR HGB CONC 34 g/dl (33.0-37.0); MEAN PLATELET VOLUME 8.3 fl (7.4-10.4); PLATELET COUNT 451 K/mm3 (130-400); RED BLOOD COUNT 4.09 M/mm3 (4.10-5.30); REDCELL DISTRIBUTION WIDTH-CV 13.8 % (11.5-14.5)
[2020-05-07 16:42] LABS: HEMATOCRIT 36.6 % (37.0-47.0)
[2020-05-07 17:50] VITALS: BP 113/75; PULSE 90; TEMP 98.9
[2020-05-07 18:05] LABS: CALCIUM 9.2 mg/dL (8.4-10.2); CREATININE, serum 0.78 (0.52-1.25)
== END ==
LOC: EUO 15:00
PROVIDERS: Family Medicine
DX: E86.0 Dehydration (principal)
CPT/HCPCS: J7030

== ENCOUNTER 2020-05-20 00:08 | Emergency (ER) | payer BC ==
[2020-05-20 00:23] VITALS: TEMP 98
[2020-05-20] MEDS ORDERED: DECADRON6 MG PO (00:30)
[2020-05-20] MEDS ORDERED: PROAIR HFA0.09 MG/AC IH (00:30)
[2020-05-20 01:27] LABS: BASO % 0.3 % (0.0-2.0); EOS # 0.3 (0.0-0.7); EOS % 3.5 % (0-4.0); GRAN % 55.8 % (42.2-75.2); HEMOGLOBIN 12.3 g/dl (12.5-16.0); LYMPH # 3.1 (1.2-3.4); LYMPH % 33.8 % (20.0-51.0); MEAN CELL VOLUME 89 fl (80.0-100.0); MEAN CORPUSCULAR HEMOGLOBIN 30 pg (27.0-31.0); MEAN CORPUSCULAR HGB CONC 34 g/dl (33.0-37.0); MEAN PLATELET VOLUME 8.6 fl (7.4-10.4); MONO # 0.6 (0.1-0.6); MONO % 6.3 % (1.7-9.3); PLATELET COUNT 289 K/mm3 (130-400); RED BLOOD COUNT 4.07 M/mm3 (4.10-5.30); REDCELL DISTRIBUTION WIDTH-CV 13.8 % (11.5-14.5)
[2020-05-20 01:30] LABS: HEMATOCRIT 36.2 % (37.0-47.0)
[2020-05-20 01:38] LABS: ALBUMIN 4.2 gm/dL (3.5-5.0); BILIRUBIN,TOTAL 0.6 mg/dL (0.0-1.0); CALCIUM 9.2 mg/dL (8.4-10.2); CREATININE, serum 0.67 (0.52-1.25); POTASSIUM 3.3 mmol/L (3.4-5.0); TOTAL PROTEIN 7.8 gm/dL (6.4-8.2)
[2020-05-20 02:21] VITALS: BP 158/89; PULSE 92
== END 2020-05-20 02:21 | disposition home or self-care (01) ==
LOC: COL.ER 00:08
PROVIDERS: Emergency Medicine
DX: U07.1 COVID-19 (principal); G47.30 Sleep apnea, unspecified
CPT/HCPCS: J1100; J7030

== ENCOUNTER 2020-08-15 21:30 | Emergency (ER) | payer BC ==
[~2020-08-15] VITALS: Ht 177.8 cm; Wt 159.1 kg
[~2020-08-15 21:30] MED LIST changes: +DECADRON6 MG PO; +PROAIR HFA0.09 MG/AC IH
[2020-08-15 22:27] LABS: BASO # 0.1 (0.0-0.2); BASO % 0.8 % (0.0-2.0); EOS # 0.1 (0.0-0.7); EOS % 1.4 % (0-4.0); GRAN # 6.3 (1.4-6.5); GRAN % 72.8 % (42.2-75.2); HEMATOCRIT 37.5 % (37.0-47.0); HEMOGLOBIN 12.3 g/dl (12.5-16.0); LYMPH # 1.6 (1.2-3.4); MEAN CELL VOLUME 88 fl (80.0-100.0); MEAN CORPUSCULAR HEMOGLOBIN 29 pg (27.0-31.0); MEAN CORPUSCULAR HGB CONC 33 g/dl (33.0-37.0); MONO # 0.6 (0.1-0.6); MONO % 6.8 % (1.7-9.3); PLATELET COUNT 334 K/mm3 (130-400); RED BLOOD COUNT 4.25 M/mm3 (4.10-5.30); REDCELL DISTRIBUTION WIDTH-CV 14.6 % (11.5-14.5)
[2020-08-15 22:37] LABS: PROTHROMBIN TIME 11.7 SECONDS (9.7-12.8)
[2020-08-15 22:39] LABS: ALANINE AMINOTRANSFERASE 62 U/L (4-34); ALBUMIN 4.2 gm/dL (3.5-5.0); ALKALINE PHOSPHATASE 117 U/L (50-136); ANION GAP 12 mmol/L (7-16); AST,SGOT 90 U/L (15-37); BILIRUBIN,TOTAL 0.3 mg/dL (0.0-1.0); BLOOD UREA NITROGEN 8 mg/dL (7-17); CALCIUM 9.2 mg/dL (8.4-10.2); CARBON DIOXIDE 21 mmol/L (22-30); CHLORIDE 98 mmol/L (98-107); CREATININE, serum 0.76 (0.52-1.25); GLUCOSE 218 mg/dL (74-106); LIPASE 169 U/L (23-300); MAGNESIUM 1.8 mg/dL (1.6-2.3); POTASSIUM 3.8 mmol/L (3.4-5.0); SODIUM 132 mmol/L (137-145)
[2020-08-15 22:40] LABS: PARTIAL THROMBOPLASTIN TIME 30.9 SECONDS (26.0-37.0)
[2020-08-15 22:52] LABS: TROPONIN-I < 0.012 ng/mL (0.000-0.035)
[2020-08-16 00:39] LABS: COLLECTION METHOD CLEAN CATCH
[2020-08-16 00:44] LABS: PH 6 (5-8); SQUAMOUS EPITHELIAL 0-2 /hpf; URINE APPEARANCE Clear; URINE BACTERIA None Seen /hpf; URINE BILIRUBIN Negative (NEGATIVE); URINE BLOOD Negative (NEGATIVE); URINE COLOR Straw; URINE GLUCOSE Negative (NEGATIVE); URINE KETONE Negative (NEGATIVE); URINE LEUKOCYTE ESTERASE Negative (NEGATIVE); URINE NITRATE Negative (NEGATIVE); URINE PROTEIN(semi-quant) Negative (NEGATIVE); URINE RBC 0-2 /hpf; URINE UROBILINOGEN Negative (NEGATIVE)
[2020-08-16 01:47] VITALS: BP 157/115; PULSE 78; TEMP 99.2
== END 2020-08-16 01:47 | disposition home or self-care (01) ==
LOC: COL.ER 21:30
PROVIDERS: Emergency Medicine
DX: R50.83 Postvaccination fever (principal); R53.81 Other malaise; R53.83 Other fatigue; E86.0 Dehydration; M79.622 Pain in left upper arm; I10 Essential (primary) hypertension; Z93.3 Colostomy status; Z87.891 Personal history of nicotine dependence; Z86.16 Personal history of COVID-19; Z90.49 Acquired absence of other specified parts of digestive tract; Z90.721 Acquired absence of ovaries, unilateral; Z79.51 Long term (current) use of inhaled steroids; Z79.890 Hormone replacement therapy
CPT/HCPCS: J2270; J2405; J7120; Q9967

== ENCOUNTER 2020-11-13 09:07 | Day surgery (SDC) | payer MEDICARE, BC ==
[2020-11-13] VITALS (12 sets, daily range): BP systolic 101–163; BP diastolic 48–102; PULSE 86–103; TEMP 97.7
[~2020-11-13] VITALS: Ht 177.8 cm; Wt 158.5 kg
[2020-11-13] MEDS ORDERED: D3-5050000 IU PO ×2 (09:34→09:55)
[2020-11-13] MEDS ORDERED: GLUCOPHAGE1000 MG PO ×2 (09:34→09:48)
[2020-11-13 10:13] LABS: HEMATOCRIT 37.8 % (37.0-47.0); HEMOGLOBIN 12.7 g/dl (12.5-16.0); MEAN CELL VOLUME 85 fl (80.0-100.0); MEAN CORPUSCULAR HEMOGLOBIN 29 pg (27.0-31.0); MEAN CORPUSCULAR HGB CONC 34 g/dl (33.0-37.0); MEAN PLATELET VOLUME 8.8 fl (7.4-10.4); PLATELET COUNT 360 K/mm3 (130-400); RED BLOOD COUNT 4.43 M/mm3 (4.10-5.30); REDCELL DISTRIBUTION WIDTH-CV 14.7 % (11.5-14.5)
[2020-11-13 10:20] LABS: INR 1.1 (0.8-3.0); PROTHROMBIN TIME 12.7 SECONDS (9.7-12.8)
[2020-11-13 10:22] LABS: PARTIAL THROMBOPLASTIN TIME 33.6 SECONDS (26.0-37.0)
[2020-11-13] MEDS ORDERED: ADDERALL XR25 MG PO (10:50)
[2020-11-13] MEDS ORDERED: DESYREL 100MG100 MG PO (10:51)
[2020-11-13] MEDS ORDERED: HYZAAR 25 MG-101 TAB PO (10:51)
[2020-11-13] MEDS ORDERED: DULERA1 ARO IH (10:52)
[2020-11-13] MEDS ORDERED: VALIUM 10MG10 MG/TAB PO (10:52)
[2020-11-13] MEDS ORDERED: STIOLTO RESPIMAT4 GM IH (10:52)
[2020-11-13] MEDS ORDERED: MULTIVITAMIN FO1 CAP PO (10:53)
[2020-11-13] MEDS ORDERED: PROTONIX 40MG T40 MG PO (10:54)
[2020-11-13] MEDS ORDERED: K-DUR 10 MEQ T10 MEQ PO (10:54)
[2020-11-13] MEDS ORDERED: SYNTHROID0.075 MG/T PO (10:54)
[2020-11-13] MEDS ORDERED: LASIX 20MG TABL20 MG PO (10:54)
[2020-11-13] MEDS ORDERED: SINGULAIR 110 MG/TAB PO (10:55)
[2020-11-13] MEDS ORDERED: ZOVIRAX400 MG PO (10:55)
[2020-11-13] MEDS ORDERED: WELLBUTRIN 75MG75 MG PO (10:55)
[2020-11-13] MEDS ORDERED: ASPIRIN E.C. 8181 MG PO (10:55)
[2020-11-13] MEDS ORDERED: ZYRTEC 10MG10 MG PO (10:56)
[2020-11-13] MEDS ORDERED: CARDIZEM CD 18180 MG PO (10:56)
[2020-11-13] MEDS ORDERED: FLEXERIL 1010 MG/TAB PO (10:56)
[2020-11-13 11:17] LABS: CALCIUM 9.9 mg/dL (8.4-10.2); CREATININE, serum 0.82 (0.52-1.25); POTASSIUM 3.2 mmol/L (3.4-5.0)
--- NOTE | 2020-11-13 13:11 | NUR ---
Rt femoral puncture site soft to palpation, dressing clean, dry and intact. No bleeding noted to rt radial puncture site, and forearm is soft to palpation, no c/o of pain or numbness to hand. Rt arm elevated on pillow for comfort. Pillow also placed under left leg for comfort.
--- NOTE | 2020-11-13 17:14 | NUR ---
DC instructions reviewed with pt and , both express understanding. Following 4 hr bedrest period pt was assisted to sitting position on edge of bed. She will remain sitting while finishing her meal tray. She is instructed not to stand until staff is at bedside to assist and expresses understanding. She expresses relief in back and joint pains she's been experiencing during bedrest period. Does report some relief within last hour due to multiple attempts at repositioning in bed and with pillow and PO meds. Pt will call when ready to stand and get dressed. remains at bedside, call light in reach. Air was removed from TR band in 2 ml increments with no bleeding or complication. Site was dressed with folded 2x2 and bandaid. Rt femoral puncture site has remained soft to palpation with no drainage on dressing during recovery period.
--- NOTE | 2020-11-13 17:18 | NUR ---
ISAURA Otero will assist pt to ambulate and dress, and assist her out to car.
== END 2020-11-13 17:50 | disposition home or self-care (01) ==
LOC: COL.CAR 09:07
PROVIDERS: Internal Medicine Cardiovascular Disease
DX: R07.89 Other chest pain (principal); I10 Essential (primary) hypertension; E78.2 Mixed hyperlipidemia; K76.0 Fatty (change of) liver, not elsewhere classified; E11.9 Type 2 diabetes mellitus without complications; J45.20 Mild intermittent asthma, uncomplicated; E66.01 Morbid (severe) obesity due to excess calories; Z86.16 Personal history of COVID-19; E03.9 Hypothyroidism, unspecified; E55.9 Vitamin D deficiency, unspecified; K51.90 Ulcerative colitis, unspecified, without complications; K21.9 Gastro-esophageal reflux disease without esophagitis; Z93.2 Ileostomy status; Z68.42 Body mass index [BMI] 45.0-49.9, adult; Z87.891 Personal history of nicotine dependence; Z79.899 Other long term (current) drug therapy; Z79.890 Hormone replacement therapy; Z79.84 Long term (current) use of oral hypoglycemic drugs; Z79.51 Long term (current) use of inhaled steroids
CPT/HCPCS: C1760; C1769; C1894; J1644; J2250; J3010; Q9967

== ENCOUNTER 2020-11-14 17:26 | Emergency (ER) | payer MEDICARE, BC ==
[~2020-11-14] VITALS: Ht 177.8 cm; Wt 158.6 kg
[~2020-11-14 17:26] MED LIST changes: +ADDERALL XR25 MG PO; +ASPIRIN E.C. 8181 MG PO; +CARDIZEM CD 18180 MG PO; +FLEXERIL 1010 MG/TAB PO; +GLUCOPHAGE1000 MG PO; +HYZAAR 25 MG-101 TAB PO; +K-DUR 10 MEQ T10 MEQ PO; +LASIX 20MG TABL20 MG PO; +MULTIVITAMIN FO1 CAP PO; +STIOLTO RESPIMAT4 GM IH; +VALIUM 10MG10 MG/TAB PO; +WELLBUTRIN 75MG75 MG PO
[2020-11-14 17:33] VITALS: TEMP 98.2
[2020-11-14 18:18] LABS: BASO # 0.1 (0.0-0.2); BASO % 0.9 % (0.0-2.0); EOS # 0.3 (0.0-0.7); EOS % 2.9 % (0-4.0); GRAN # 5.4 (1.4-6.5); GRAN % 59.6 % (42.2-75.2); HEMOGLOBIN 11.7 g/dl (12.5-16.0); LYMPH # 2.7 (1.2-3.4); MEAN CELL VOLUME 88 fl (80.0-100.0); MEAN CORPUSCULAR HEMOGLOBIN 29 pg (27.0-31.0); MEAN CORPUSCULAR HGB CONC 33 g/dl (33.0-37.0); MEAN PLATELET VOLUME 8.8 fl (7.4-10.4); MONO # 0.6 (0.1-0.6); MONO % 6.4 % (1.7-9.3); PLATELET COUNT 318 K/mm3 (130-400); RED BLOOD COUNT 4.07 M/mm3 (4.10-5.30); REDCELL DISTRIBUTION WIDTH-CV 14.8 % (11.5-14.5)
[2020-11-14 18:22] LABS: HEMATOCRIT 35.8 % (37.0-47.0)
[2020-11-14 18:33] LABS: ALBUMIN 4.3 gm/dL (3.5-5.0); BILIRUBIN,TOTAL 0.4 mg/dL (0.0-1.0); CALCIUM 9.5 mg/dL (8.4-10.2); CREATININE, serum 0.64 (0.52-1.25); POTASSIUM 3.4 mmol/L (3.4-5.0); TOTAL PROTEIN 7.7 gm/dL (6.4-8.2)
[2020-11-14 18:45] LABS: TROPONIN-I 0.014 ng/mL (0.000-0.035)
[2020-11-14 20:05] VITALS: BP 137/89; PULSE 101
== END 2020-11-14 20:05 | disposition home or self-care (01) ==
LOC: COL.ER 17:26
PROVIDERS: Physician Assistant
DX: R07.89 Other chest pain (principal); E66.01 Morbid (severe) obesity due to excess calories; Z87.891 Personal history of nicotine dependence

== ENCOUNTER → 2021-02-11 | Outpatient (CLI) | payer MEDICARE, BC | LOC: MC.RAD 09:00 | DX: Z12.31 Encounter for screening mammogram for malignant neoplasm of breast (principal) ==

== ENCOUNTER 2021-06-10 17:44 | Emergency (ER) | payer MEDICARE, BC ==
[~2021-06-10] VITALS: Ht 180.3 cm; Wt 147.7 kg
[2021-06-10 17:50] VITALS: TEMP 99.2
[2021-06-10 18:21] LABS: BASO # 0.1 K/mm3 (0.0-0.2); BASO % 0.5 % (0.0-2.0); EOS # 0.1 K/mm3 (0.0-0.7); EOS % 0.8 % (0.0-4.0); GRAN # 9.7 K/mm3 (1.4-6.5); GRAN % 89.1 % (42.2-75.2); HEMOGLOBIN 12.2 g/dl (12.5-16.0); LYMPH # 0.8 K/mm3 (1.2-3.4); MEAN CELL VOLUME 85 fl (80.0-100.0); MEAN CORPUSCULAR HEMOGLOBIN 29 pg (27-31); MEAN CORPUSCULAR HGB CONC 34 g/dl (33.0-37.0); MEAN PLATELET VOLUME 8.6 fl (7.4-10.4); MONO # 0.3 K/mm3 (0.1-0.6); MONO % 2.3 % (1.7-9.3); PLATELET COUNT 332 K/mm3 (130-400); RED BLOOD COUNT 4.19 M/mm3 (4.10-5.30); REDCELL DISTRIBUTION WIDTH-CV 13.4 % (11.5-14.5)
[2021-06-10 18:28] LABS: HEMATOCRIT 35.5 % (37.0-47.0)
[2021-06-10 18:38] LABS: ALBUMIN 3.7 gm/dL (3.5-5.0); BILIRUBIN,TOTAL 0.6 mg/dL (0.2-1.2); CALCIUM 8.7 mg/dL (8.4-10.2); CREATININE, serum 0.87 mg/dL (0.57-1.11); POTASSIUM 3.4 mmol/L (3.5-4.5); TOTAL PROTEIN 7.3 gm/dL (6.2-8.1)
[2021-06-10] MEDS ORDERED: ZOFRAN ODT4 MG PO (19:54)
[2021-06-10 20:02] VITALS: BP 132/86; PULSE 104
== END 2021-06-10 20:02 | disposition home or self-care (01) ==
LOC: COL.ER 17:44
PROVIDERS: Student in an Organized Health Care Education/Training Program
DX: B34.9 Viral infection, unspecified (principal); E11.9 Type 2 diabetes mellitus without complications; E03.9 Hypothyroidism, unspecified; Z20.822 Contact with and (suspected) exposure to COVID-19; Z79.890 Hormone replacement therapy
CPT/HCPCS: J7030

== ENCOUNTER → 2021-10-11 | Outpatient (CLI) | payer MEDICARE, BC ==
[~2021-10-11] MED LIST changes: +ZOFRAN ODT4 MG PO
== END ==
LOC: COL.RAD 07:02
DX: M51.36 Other intervertebral disc degeneration, lumbar region (principal); M47.817 Spondylosis without myelopathy or radiculopathy, lumbosacral region; E11.69 Type 2 diabetes mellitus with other specified complication; M51.26 Other intervertebral disc displacement, lumbar region; G25.81 Restless legs syndrome; R20.2 Paresthesia of skin

== ENCOUNTER → 2023-03-27 | Outpatient (CLI) | payer MEDICARE, BC | LOC: CANSCHCLI → MC.RAD 11:30 | DX: Z12.31 Encounter for screening mammogram for malignant neoplasm of breast (principal) ==

== ENCOUNTER → 2024-03-09 | Outpatient (CLI) | payer MEDICARE, BC | LOC: COL.RAD 08:55 | DX: M47.26 Other spondylosis with radiculopathy, lumbar region (principal); E11.42 Type 2 diabetes mellitus with diabetic polyneuropathy ==